=== PATIENT | female | born 1940 | race Caucasian/White ===

== ENCOUNTER → 2016-11-16 | Outpatient (CLI) | payer MEDICARE ==
[~2016-11-16] MED LIST: "\\\"PREP SPRAY\\\"-TIN4 OZ"; ALDACTONE25 MG PO; ALIGN4 MG PO; ARTIFICIAL TEAR30 ML OPHTH; ASPIRIN LO-DOSE81 MG PO; CALCIUM600 MG PO; ELIQUIS5 MG PO; ESTROPIPATE0.75 MG PO; EXCEDRIN TENSI1 EACH PO; GLUCOPHAGE500 MG PO; HYDRODIURIL12.5 MG PO; IMODIUM2 MG PO; JANUVIA 100 MG100 MG PO; KLOR-CON M2020 MEQ PO; LASIX20 MG PO; LEVAQUIN500 MG PO; LEVOTHROID (S125 MCG PO; LIPITOR40 MG PO; MAGNESIUM400 M1 PO; NORCO 5-325 MG1 TAB PO; NORCO 5-325 TA1 EACH PO; OCUVITE LUTEIN1 EAC1 PO; PLAVIX75 MG PO; PREVAGEN PO; PRINIVIL (ZESTR20 MG PO; PROBIOTIC1 EAC6 PO; SYSTANE BALANCE10 ML OPHTH; SYSTANE GEL10 GM OPHTH; TEARS AGAIN EYE5 GM OPHTH; THERAGRAN-M1 TAB PO; TOPROL XL25 MG PO; TYLENOL325 MG PO; VITAMIN B122500 MCG PO; VITAMIN C500 M1 PO
== END | disposition disaster alternative care site (69) ==
LOC: LNHI 17:21
DX: I48.1 Persistent atrial fibrillation (principal); I50.42 Chronic combined systolic (congestive) and diastolic (congestive) heart failure; I25.10 Atherosclerotic heart disease of native coronary artery without angina pectoris

== ENCOUNTER → 2016-12-21 | Day surgery (SDC) | payer MEDICARE ==
[~2016-12-21] VITALS: Ht 170.2 cm; Wt 86.9 kg
== END | disposition disaster alternative care site (69) ==
LOC: GPOC 12-19 14:00 → GEND 07:25 → GPOC 14:00
PROC: 0D748ZZ Dilation of Esophagogastric Junction, Via Natural or Artificial Opening Endoscopic (ICD-10-PCS; principal; 2016-12-21)
PROC: 0DB18ZX Excision of Upper Esophagus, Via Natural or Artificial Opening Endoscopic, Diagnostic (ICD-10-PCS; 2016-12-21)
PROC: 0DB38ZX Excision of Lower Esophagus, Via Natural or Artificial Opening Endoscopic, Diagnostic (ICD-10-PCS; 2016-12-21)
DX: R13.10 Dysphagia, unspecified (principal); I10 Essential (primary) hypertension; E11.9 Type 2 diabetes mellitus without complications; I25.10 Atherosclerotic heart disease of native coronary artery without angina pectoris; I87.2 Venous insufficiency (chronic) (peripheral); M15.9 Polyosteoarthritis, unspecified; E78.5 Hyperlipidemia, unspecified; E03.9 Hypothyroidism, unspecified; I27.2 Other secondary pulmonary hypertension; Z88.8 Allergy status to other drugs, medicaments and biological substances; Z79.899 Other long term (current) drug therapy; Z87.19 Personal history of other diseases of the digestive system; Z90.49 Acquired absence of other specified parts of digestive tract; Z98.49 Cataract extraction status, unspecified eye; Z90.710 Acquired absence of both cervix and uterus; Z96.643 Presence of artificial hip joint, bilateral; Z98.890 Other specified postprocedural states
CPT/HCPCS: C1726; J2001; J7030

== ENCOUNTER 2017-05-15 17:40 | Inpatient (IN) | payer MEDICARE ==
[~2017-05-15] VITALS: Ht 172.7 cm; Wt 79.8 kg
--- NOTE | ~2017-05-15 | ECHO ---
Transthoracic Echocardiography Report (TTE) Demographics Patient Name NICHO WALTON Date of Study 05/16/2017 Patient Number [id number] Visit Number [id number] Date of 1940 Room Number G3310 Gender Female Number Age 76 year(s) Referring Hranac Derik Turk Training And Documentation Specialist Salina Sarmiento [facility], Physician RVT Dinorah Carey MD Physician Interpreting Tarah Maldonado Outsole Rounder Physician Burke VIDAL Supervising Ordering Dinorah Carey MD, MD/MLP Physician Nurse Stress Financial Representative Conclusions Contractility Score Summary Summary The estimated left ventricular ejection fraction is 40-45%. Mild to moderate concentric left ventricular hypertrophy. Diastolic assessment reveals Grade III restrictive diastolic dysfunction. The left atrium is moderately dilated by LA volume index measurement. The interatrial septum appears aneurysmal. The interatrial septum bulges to the right, indicating elevated left atrial pressure. Mild to moderate mitral regurgitation by color Doppler 2 jets. Mild mitral annular calcification. Mild prolapse of both mitral valve leaflets. There is moderate pulmonary hypertension. The pulmonary pressure (RVSP) is 48 mmHg. Moderate tricuspid regurgitation by color Doppler. The aortic root appears dilated. The maximum diameter measures 3.43 cm. IVC is moderately dilated. Blunted response to sniffing. Abdominal aorta appears atherosclerotic. Procedure Type of Study TTE procedure:2D Echocardiogram. Procedure Date Date: 05/16/2017 Start: 06:44 AM Study Location: Inpatient Portable Technical Quality: Adequate visualization Indications:Preop cardiac evaluation and CHF. Appropriate Use Criteria: 9 Patient Status: Routine Rhythm: Within normal limits HR: 65 bpm BP: 135/76 mmHg Allergies - Other:(midazolam, benzodiazepines). M-Mode/2D Measurements LV Diastolic Dimension: 5 cm LV Systolic Dimension: 3.85 cm LV Septum Diastolic: 1.25 cm LV Septum Systolic: 3.87 cm LV PW Diastolic: 1.15 cm AO Root Dimension: 2.2 cm Cardiac Output: 5.16 l/min AV Cusp Separation: 1.8 cm RV Diastolic Dimension: 1.98 cm LA volume: 106 ml LVOT: 2.2 cm RV Base: 3.82 cm LVOT VTI: 20.9 cm RV Mid: 3 cm LV Stroke volume: 79.41 ml Doppler Measurements AV Peak Velocity: 1.2 m/s MV Peak E-Wave: 0.97 m/s AV Peak Gradient: 5.76 mmHg MV Peak A-Wave: 0.47 m/s AV Mean Gradient: 2 mmHg MV E/A Ratio: 2.07 LVOT Peak Velocity: 0.71 m/s MV P1/2t: 51 msec TR Gradient:33.64 mmHg PV Peak Velocity: 0.71 m/s Estimated RAP:15 mmHg PV Peak Gradient: 2.02 mmHg Estimated RVSP: 49 mmHg Estimated PASP: 48.64 mmHg E' Septal Velocity: 0.08 m/s A' Septal Velocity: 0.03 m/s E' Lateral Velocity: 0.12 m/s A' Lateral Velocity: 0.06 m/s MV E/E' Ratio: 12.3 Findings Left Ventricle The estimated left ventricular ejection fraction is 40-45%. Mild to moderate concentric left ventricular hypertrophy. Diastolic assessment reveals Grade III restrictive diastolic dysfunction. Right Ventricle Normal right ventricle structure and function. Left Atrium The left atrium is moderately dilated by LA volume index measurement. The interatrial septum appears aneurysmal. The interatrial septum bulges to the right, indicating elevated left atrial pressure. Right Atrium The right atrium is severely dilated. Mitral Valve Mild to moderate mitral regurgitation by color Doppler 2 jets. Mild mitral annular calcification. Mild prolapse of both mitral valve leaflets. Aortic Valve The aortic valve is mildly sclerotic. No significant aortic stenosis or insufficiency. Tricuspid Valve There is moderate pulmonary hypertension. The pulmonary pressure (RVSP) is 48 mmHg. Moderate tricuspid regurgitation by color Doppler. Pulmonic Valve The pulmonic valve is not well visualized. Pericardial Effusion No evidence of pericardial effusion. Miscellaneous The aortic root appears dilated. The maximum diameter measures 3.43 cm. IVC is moderately dilated. Blunted response to sniffing. Abdominal aorta appears atherosclerotic. Pleural Effusion No evidence of pleural effusion. Signature dtt: Isai Rascon dtd: 05/16/17 0644 Physician Self Edit
--- NOTE | ~2017-05-15 | CON ---
PATIENT'S NAME: NICHO WALTON [facility] AGE: 76 Y [address] ROOM: [address] [address] LOCATION: [facility] ADMIT DATE: 05/15/2017 Consultation DISCHARGE DATE: FAMILY PHYSICIAN: Derik Wall MD ATTENDING PHYSICIAN: ZECHARIAH WILSON REFERRING PHYSICIAN: Isai Rascon MD CHIEF COMPLAINT: Right foot redness and swelling. REASON FOR CONSULTATION: Medical management and preop medical evaluation. HISTORY OF PRESENT ILLNESS: This is a 76-year-old female who says that roughly about 3 days ago she noticed that her right foot has become red and itchy and also swollen. As the day goes by has become hot to touch, but she denies any tenderness due to her peripheral neuropathy from long-standing diabetes. Because of this problem, she came here today to see her primary care physician who in return deferred her to see a vascular surgeon due to her severe varicose vein in bilateral lower extremity and who in return deferred to orthopedic surgeon for the concern of the right foot cellulitis and possible bony involvement. The patient denies any pain. She only says that she has redness and swelling and she feels hot in that leg, but she denies any pain. At baseline, the patient lives by herself and she performs all the daily activities by herself, but she does get shortness of breath after walking one block. Her METS score is around 4, but she denies any chest pain at rest or exertion and she also denies any dyspnea at rest. She also denies any fever, chills, or any blood in the stool or hematuria or hemoptysis or hematochezia or hematemesis or melena. REVIEW OF SYSTEMS: As mentioned in history of present illness. All other systems were reviewed and were negative except those mentioned in history of present illness. PAST MEDICAL HISTORY: 1. Coronary artery disease, status post stent x1 in the past, specifically was performed on October 2015. 2. Hypertension. 3. Atrial fibrillation, on Eliquis. 4. Diastolic congestive heart failure. 5. Diabetes type 2. 6. History of stroke in the past, ischemic type without any neurological sequela. PATIENT'S NAME: NICHO WALTON [facility] AGE: 76 Y [address] ROOM: [place] [address] LOCATION: [facility] ADMIT DATE: 05/15/2017 Consultation DISCHARGE DATE: FAMILY PHYSICIAN: Derik Wall MD ATTENDING PHYSICIAN: ZECHARIAH IWLSON ALLERGIES: VERSED WHICH CAUSES HER TO BECOME AGGRESSIVE. HOME MEDICATIONS: Currently is being reconciled. SOCIAL HISTORY: She denies any cigarette, alcohol, or any illegal drug use. PAST SURGICAL HISTORY: 1. Cardiac stent x1 in October 2015. 2. Bilateral knee surgery. 3. Bilateral feet surgery. 4. Carpal tunnel surgery. 5. Thyroidectomy. 6. Cholecystectomy. 7. Hysterectomy. 8. Esophageal dilatation in the past. 9. Lower back surgery. FAMILY HISTORY: 1. Her father had type 2 diabetes and also from myocardial infarction at age 70. 2. Mother had stroke and from complication from the stroke at age 70. PHYSICAL EXAMINATION: VITAL SIGNS: At the time of evaluation, temperature 97.8, heart rate 67, respirations 14, blood pressure 135/77, saturation 95% on room air. GENERAL APPEARANCE: Alert and oriented x3. Currently, in no acute distress. HEENT: Pupils equally round and reactive to light. Extraocular muscles intact. Anicteric sclerae. Nasal turbinates are normal bilaterally. Moist oral mucosa. NECK: No obvious JVD. CARDIOVASCULAR: Irregularly irregular rate and rhythm. No murmur, no rubs, no gallops. RESPIRATORY: Clear to auscultation. No rales. No rhonchi. No wheezing. No crackles. ABDOMEN: Soft, nontender, nondistended, bowel sounds present. No mass. EXTREMITIES: Edema in bilateral lower extremity. Has obvious varicose veins in bilateral lower extremities. The right foot has erythema and warm to touch, but no tenderness to palpation in the right foot, especially in the toes of the right foot. Dorsalis pedis pulse and posterior tibialis pulse +2, bilaterally present. There is a superficial ulcer that does not look infected on the plantar surface of the right foot. No purulent drainage. PATIENT'S NAME: NICHO WALTON [facility] AGE: 76 Y [address] ROOM: [place] [address] LOCATION: [facility] ADMIT DATE: 05/15/2017 Consultation DISCHARGE DATE: FAMILY PHYSICIAN: Derik Wall MD ATTENDING PHYSICIAN: ZECHARIAH WILSON NEURO: Sensation decreased in the right foot. Otherwise, unremarkable. SKIN: Erythema and warm to touch on the right foot. LABORATORY DATA: Troponin less than 0.04. CPK 70. ProBNP 5466. White blood cell 3.0, hemoglobin 11.4, hematocrit 33.9, platelets 114. Glucose 100, BUN 24, creatinine 1.2, sodium 142, potassium 3.9, chloride 109, CO2 of 27, calcium 9.1. Total protein 6.8, albumin 3.2, AST 32, ALT 28, alkaline phosphatase 101, total bilirubin 1.3, direct bilirubin 0.4. Magnesium 1.6. Anion gap 9.9. Globulin 3.6. Indirect bilirubin 0.9. INR 1.2, PTT 32. GFR 44. CK-MB 2.7. IMAGING STUDIES: 1. EKG, currently is pending. 2. Chest x-ray, currently is pending. 3. MRI of the right foot on admission showed findings compatible with cellulitis, but no evidence for abscess or osteomyelitis. ASSESSMENT AND PLAN: 1. Regarding her right lower extremity cellulitis. Defer to Orthopedic Surgery for irrigation and drainage and also gastrocnemius recession per Orthopedic Surgery tomorrow. 2. Regarding her preoperative medical evaluation for noncardiac surgery. Orthopedic surgery is considered as intermediate risk surgery. From the guideline, currently the patient does not have any active contraindication for surgery; however, awaiting for the chest x-ray and also for the EKG to be performed and also she has evidence of right-sided heart failure from pulmonary hypertension, from elevation of proBNP. Her lungs are clear, but her proBNP is very high and she has a history of severe pulmonary hypertension. Therefore, the plan will be to get an echo in the morning, and I will give her low-dose Lasix tonight and check a renal panel again in the morning. She is on room air, saturating more than 94%. She does have edema in the legs, but it is chronic and she also has some edema due to her varicose veins. Further plan will depend on Cardiology evaluation and pending her clinical course. Unless her EKG and chest x-ray show something otherwise, she will need more testing and more medical evaluation before going for surgery. Therefore, her plan will depend on clinical course and per Cardiology evaluation in the morning. 3. Regarding her history of coronary artery disease, status post stent. We will defer to Cardiology evaluation. Currently, no active issue except some exertional dyspnea which I am treating her with IV Lasix right now for her right-sided heart failure from pulmonary hypertension. 4. Regarding her hypertension. Continue home blood pressure medication with holding parameter. PATIENT'S NAME: NICHO WALTON [facility] AGE: 76 Y [address] ROOM: [place] [address] LOCATION: [facility] ADMIT DATE: 05/15/2017 Consultation DISCHARGE DATE: FAMILY PHYSICIAN: Derik Wall MD ATTENDING PHYSICIAN: ZECHARIAH WILSON 5. Regarding her history of atrial fibrillation, on Eliquis. Hold Eliquis. It will be more than 24 hours from her last dose before the surgery, so she will be okay to go for surgery without bleeding risk. 6. Regarding history of diastolic congestive heart failure. We will get an echo in the morning and give her low-dose IV Lasix tonight, and depending on her renal panel tomorrow and echo and per Cardiology evaluation, would decide on further action. 7. Regarding her diabetes type 2. Check A1c and also will be giving her subcu regular insulin every 6 hours while n.p.o. and subcu aspart a.c. and h.s. low dose while she is eating. We will titrate as necessary. I will hold metformin in the setting of acute kidney injury. 8. Regarding her acute kidney injury. This could be cardiorenal from the severe pulmonary hypertension and the right-sided heart failure. Will give low-dose IV Lasix and see how she would do tomorrow morning. 9. Regarding her history of stroke. No active issue. 10. Regarding her hypothyroidism. Check TSH. Continue home dose and titrate the dose if necessary depending on the TSH level. 11. Deep venous thrombosis prophylaxis. She has a foot pump on the left foot. 12. Regarding her varicose vein. Defer to Vascular Surgery. Time spent in care on the day of admission 50 minutes where 15 minutes was spent on chart review and remainder of the time was spent in interview and physical examination and also on counseling. The counseling includes going over the plan of care with the patient and also addressing all the question and concerns that the patient had and also I went over the plan of care in detail with the patient and the patient's family member at the bedside. I also went over the plan of care with the nurse and answered all the questions to their satisfaction. Further plan will depend on clinical course. MD YANCI BLACK/keiry /[id number] d: 05/16/17 0545 t: 05/29/175, CONSULTATION REPORT
--- NOTE | ~2017-05-15 | OR ---
PATIENT'S NAME: NICHO MCCLELLAND [facility] AGE: 76 Y [address] ROOM: [place] [address] LOCATION: [facility] ADMIT DATE: 05/15/2017 OR/Procedure Report DISCHARGE DATE: FAMILY PHYSICIAN: Derik Wall MD ATTENDING PHYSICIAN: ZECHARIAH WILSON SURGEON: Zechariah Wilson MD ACID LOADER: Isak nichols PA-C. DATE OF PROCEDURE: 05/16/2017 PREOPERATIVE DIAGNOSES: 1. Right gastrocnemius equinus/shortened Achilles tendon. 2. Stage III diabetic pressure ulcer in the first metatarsal head. PROCEDURES: 1. Right gastrocnemius recession procedure. 2. Irrigation and debridement of right stage III diabetic pressure ulcer of plantar surface of foot. Debridement included skin, subcutaneous tissue, muscle, and fascia. Dimensions of wound were 6 cm in length x 6 cm in width x 0.5 cm in depth. ANESTHESIA: General endotracheal anesthesia. FLUIDS: See anesthesia report. SPECIMEN: Right foot wound cultures. COMPLICATIONS: None. DISPOSITION: Stable in PACU. COUNTS: All counts were correct. INDICATIONS: Ms. Mcclelland is a pleasant 76-year-old female, who underwent the noted procedures above. The risks, benefits, and alternatives of pursuing the surgical intervention were discussed with the patient in detail. She elected to proceed with surgery. Anesthesia was consulted for their perioperative evaluation of the patient. I marked the patient's right lower extremity indicating correct surgical site. DESCRIPTION OF PROCEDURE: The patient was brought from the holding area to the operating room. A time-out was performed. General endotracheal anesthesia was administered. The right lower extremity was then prepped and draped in a sterile fashion. An Esmarch was used to exsanguinate the limb. The tourniquet was inflated to PATIENT'S NAME: NICHO MCCLELLAND [facility] AGE: 76 Y [address] ROOM: [place] [address] LOCATION: [facility] ADMIT DATE: 05/15/2017 OR/Procedure Report DISCHARGE DATE: FAMILY PHYSICIAN: Derik Wall MD ATTENDING PHYSICIAN: ZECHARIAH WILSON 250 mmHg. Antibiotics were held in preparation for cultures of the right foot. I turned my attention to the medial aspect of the leg. Using a 15-blade knife, I performed a gastrocnemius recession procedure. The wound was then copiously irrigated and closed in layers. I then turned my attention to the right foot where there was a stage III diabetic pressure sore. Using a 10-blade knife and curettes, I debrided the diabetic pressure ulcer to a stable base. The debridement included skin, subcutaneous tissue, muscle, and fascia. The wound was then copiously irrigated and dressed sterilely. A soft dressing was placed. The patient was then transferred from the operating table onto the stretcher and extubated. She was brought to the recovery room in stable condition. There were no intraoperative complications noted. Of note, my PA, Isak Balgey PA-C, played an integral role in the intraoperative care of this patient. This included preoperative positioning, intraoperative expert retraction, and closing and dressing functions. IMPRESSION: The patient is status post noted procedure above. PLAN: The patient will be nonweightbearing on the right lower extremity. Postoperative pain control will be in the form of Percocet and IV morphine as needed for pain. Chemical DVT prophylaxis will be resumed tomorrow. We will change the dressing on postoperative day 2. We will follow up the results of the intraoperative wound cultures that were obtained. Postoperative antibiotics will be continued per routine until the cultures come back. The hospitalist will continue to manage the patient's concomitant medical comorbidities. Physical Therapy and Occupational Therapy will be consulted for early ambulation and prevention of deconditioning. MD ALYSON ZELAYA/keiry /[id number] d: 05/17/17 0104 t: 05/17/17 0733, OPERATIVE SUMMARY
--- NOTE | ~2017-05-15 | CON ---
PATIENT'S NAME: NICHO MCCLELLAND [facility] AGE: 76 Y [address] ROOM: [id number] [place] [id number] LOCATION: [facility] ADMIT DATE: 05/15/2017 Consultation DISCHARGE DATE: FAMILY PHYSICIAN: Derik Wall MD ATTENDING PHYSICIAN: ZECHARIAH WILSON REFERRING PHYSICIAN: Osman Rosen MD HISTORY OF PRESENT ILLNESS: This is a 76-year-old woman with chronic combined heart failure, previous stent to the left anterior descending artery, and chronic atrial fibrillation whom I am asked to see as a preoperative evaluation to assess her cardiac risk. She was admitted on the because she says that about 3 days earlier, she noticed that her right foot had become swollen and red. She did not have any pain, but she thinks that is because of her peripheral neuropathy from her diabetes. She noticed that the foot was warm to touch, so she went to see Dr. Fountain who diagnosed her with cellulitis. Dr. Ny was also consulted because of her chronic venous insufficiency and then she was admitted under the Hospitalist Service and Dr. Wilson plans to do some debridement and also work on her gastrocnemius. PAST MEDICAL HISTORY: 1. Coronary artery disease. The patient had a drug-eluting stent to the mid left anterior descending artery in October 2015, and she did well afterwards. 2. She has chronic combined heart failure with ejection fraction of 40% to 45%, as well as class 3 diastolic dysfunction, biatrial enlargement, and mild to moderate mitral and tricuspid regurgitation with moderate pulmonary hypertension. 3. She has chronic venous insufficiency with previous 3 endovascular ablations of her saphenous veins but with recurrence and history of deep vein thrombosis and at least one episode of pulmonary emboli. There is also family history of thromboembolic disease and factor V Leiden. 4. The patient has considered going off for her anticoagulation. In the past, she was on warfarin with not very good control and now she is on Eliquis, who she thinks is responsible for her venous insufficiency and actually she had recent transesophageal echocardiogram at [facility] consideration for possible Watchman device. 5. She has chronic permanent atrial fibrillation, rate controlled. 6. She has history of cerebrovascular accident without sequelae. 7. Chronic kidney disease stage 3. 8. Diabetes type 2. 9. Systemic hypertension. 10. Chronic estrogen use. OUTPATIENT MEDICATIONS: On April 05, PATIENT'S NAME: NICHO MCCLELLAND [facility] AGE: 76 Y [address] ROOM: [address] [place], [place] [address] LOCATION: [facility] ADMIT DATE: 05/15/2017 Consultation DISCHARGE DATE: FAMILY PHYSICIAN: Derik Wall MD ATTENDING PHYSICIAN: ZECHARIAH WILSON 1. Align 4 mg daily. 2. Calcium 600 mg daily. 3. Eliquis 5 mg twice a day. 4. Excedrin 2 tablets twice a day as needed. 5. Imodium 2 mg daily as needed. 6. Januvia 100 mg daily. 7. Lasix 20 mg twice a day. 8. Lipitor 40 mg daily. 9. Lisinopril 20 mg daily. 10. Magnesium oxide 400 mg twice a day. 11. Metformin 500 mg daily. 12. Metoprolol succinate 25 mg half a tablet daily. 13. Multivitamin with minerals once a day. 14. Ogen 3 mg daily. 15. [place] 5/325 every 4 to 6 hours as needed. 16. Potassium chloride 20 mEq 2 tablets daily. 17. Spironolactone 25 mg half a tablet twice a day. 18. Synthroid 125 mcg daily. 19. Vitamin B12 1000 mcg daily. 20. Vitamin C daily. PAST SURGICAL HISTORY: Bilateral total knee arthroplasty, bilateral total hip, abdominal hysterectomy, open cholecystectomy and appendectomy, thyroidectomy, right foot surgery x2, bilateral breast augmentation and mastoplasty, bilateral cataract with intra-ocular lens implant, bilateral carpal tunnel, septoplasty, lumbar laminectomy, EGD with dilation, colonoscopy. REVIEW OF SYSTEM: In addition to what noted in the history of present illness, she has full dentures. She has macular degeneration. She has some difficulty swallowing. She has dyspnea on exertion about one block. She has history of diverticulosis, gastroesophageal reflux, hemorrhoids, hypothyroidism with goiter. Remaining systems are negative. FAMILY HISTORY: Her mother from a stroke at 70. She had history of deep vein thrombosis and pulmonary emboli in her mother. Her father from myocardial infarction at 70, he was diabetic. One sister from anorexia in her 60s. Another sister has some unspecified heart problems. PHYSICAL EXAMINATION: VITAL SIGNS: She is a pleasant 76-year-old woman, alert and oriented, examined in her room. VITAL SIGNS: Height 5 feet 8 inches, weighs 79.8 kg, blood pressure was PATIENT'S NAME: NICHO MCCLELLAND [facility] AGE: 76 Y [address] ROOM: [id number] [place], [place] [address] LOCATION: [facility] ADMIT DATE: 05/15/2017 Consultation DISCHARGE DATE: FAMILY PHYSICIAN: Derik Wall MD ATTENDING PHYSICIAN: ZECHARIAH WILSON 165/76, heart rate of 62, she is afebrile. SKIN: Warm and dry, hyperpigmented below the knees. HEAD: Normocephalic, atraumatic. No xanthelasmas. No jaundice. NECK: Supple. No jugular venous distention. No carotid bruits. CHEST: Entirely clear. HEART: Irregular first and second heart sound, 1/6 systolic murmur at the apex. ABDOMEN: Soft and nontender. LOWER EXTREMITIES: No significant edema. There is a dressing in the right foot. DIAGNOSTIC STUDIES: Troponin is negative. Procalcitonin less than 0.05, lactate 1.0, potassium 3.3, creatinine 1.1, GFR 49, magnesium 1.7. Blood cultures so far negative. TSH 1.1. Hemoglobin A1c 6.8. Lipid panel unremarkable. ProBNP 5466. Her echocardiogram today shows stable ejection fraction 40% to 45% with biatrial enlargement and restrictive filling pattern and moderate pulmonary hypertension. Electrocardiogram atrial fibrillation, poor R-wave progression on the precordial leads. IMPRESSION: From a cardiac standpoint, the patient does not need any further evaluation. She is at moderate risk for cardiac complications because of her pre-existing problems of coronary artery disease, combined heart failure, and chronic atrial fibrillation. Thank you for allowing me to participate in the care of Ms. Mcclelland. OSMAN ROSEN MD PE/modl /[id number] d: 05/16/172004 t: 08/31/17 0953, CONSULTATION REPORT
[~2017-05-15 17:40] MED LIST changes: -ALIGN4 MG PO; -CALCIUM600 MG PO; -IMODIUM2 MG PO; -LEVAQUIN500 MG PO; -NORCO 5-325 TA1 EACH PO; -OCUVITE LUTEIN1 EAC1 PO; -PREVAGEN PO; -PROBIOTIC1 EAC6 PO; -SYSTANE BALANCE10 ML OPHTH; -SYSTANE GEL10 GM OPHTH; -TYLENOL325 MG PO; -VITAMIN B122500 MCG PO; -VITAMIN C500 M1 PO
[2017-05-15 20:06] LABS: BASOPHIL % 0.7 %; HEMATOCRIT 33.9 % (33.0-46.0); HEMOGLOBIN 11.4 g/dL (10.0-15.0); IMMATURE GRANULOCYTE % 0.3 %; LYMPHOCYTE # 0.9 K/uL (0.8-4.0); LYMPHOCYTE % 30.6 %; MCH 29.7 pg (27.0-34.0); MCHC 33.6 gm/dL (32.0-36.5); MCV 88.3 fl (83.0-98.0); MONOCYTE # 0.4 K/uL (0.0-1.0); MONOCYTE % 13.5 %; MPV 9.9 fl (9.4-12.4); NEUTROPHIL # (ANC) 1.6 K/uL (1.8-7.8); NEUTROPHIL % 53.9 %; NRBC % 0 /100WBC (0-0.00); PLATELET COUNT 114 K/uL (150-450); RBC 3.84 M/uL (3.50-5.50); RDW-CV 13.5 % (11.9-14.6)
[2017-05-15 20:15] LABS: PROTIME 12.6 SECONDS (9.8-11.4); PTT 32 SECONDS (25-32)
[2017-05-15 20:21] LABS: ANION GAP 9.9 (10.0-19.0); CALCIUM 9.1 mg/dL (8.5-10.5); CREATININE 1.2 mg/dL (0.5-1.1); POTASSIUM 3.9 mMol/L (3.7-5.1)
[2017-05-15] MEDS ORDERED: VITAMIN C500 M1 PO (20:43)
[2017-05-15] MEDS ORDERED: ALIGN4 MG PO (20:43)
[2017-05-15] MEDS ORDERED: VITAMIN B122500 MCG PO (20:45)
[2017-05-15] MEDS ORDERED: CALCIUM600 MG PO (20:45)
[2017-05-15] MEDS ORDERED: IMODIUM2 MG PO (20:46)
[2017-05-15] MEDS ORDERED: OCUVITE LUTEIN1 EAC1 PO (20:47)
[2017-05-15] MEDS ORDERED: SYSTANE BALANCE10 ML OPHTH (20:48)
[2017-05-15] MEDS ORDERED: SYSTANE GEL10 GM OPHTH (20:48)
[2017-05-15] MEDS ORDERED: PREVAGEN PO (20:51)
[2017-05-15 21:09] LABS: ALBUMIN 3.2 gm/dL (3.5-5.0); ALK PHOS 101 IU/L (33-138); ALT 28 IU/L (12-78); AST 22 IU/L (10-40); CPK 70 IU/L (21-215); MAGNESIUM 1.6 mg/dL (1.8-2.6); TOTAL BILIRUBIN 1.3 mg/dL (0.0-1.5); TOTAL PROTEIN 6.8 g/dL (6.0-8.4)
--- NOTE | 2017-05-15 21:11 | NUR ---
PATIENT IS 76 YO FEMALE ADMITTED THIS EVENING FOR CELLULITIS OF RIGHT FOOT. SEEMS UNCLEAR HOW LONG SHE HAS BEEN HAVING TROUBLE WITH IT. PATIENT LIVES IN [place] BY HERSELF. DAUGHTER IS VERY CLOSE TO PATIENT. 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. SEEN IN CLINIC TODAY, REFERRED TO DR. ARORA AND IS ADMITTED. IV IS STARTED IN RIGHT FOREARM WITH 20 GA INTRACATH ON 3RD ATTEMPT. FIRST 2 ATTEMPTS SUCCESSFUL HOWEVER UNABLE TO ADVANCE THE CATHETER. BLOOD WAS DRAWN FOR LAB WITH 3RD ATTEMPT. PT VINCENT WELL. PATIENT IS VERY PLEASANT AND CHEERFUL. EDUCATION IS GIVEN DOCUMENTED. PATIENT DENIES QUESTIONS. PNEUMATICS ON LEFT FOOT ONLY. CALL LIGHT IS WITHIN REACH. PATIENT DID REQUEST ADVANCED DIRECTIVE BOOKLET. REPORT IS GIVEN TO BERNABE LEE.
--- NOTE | 2017-05-16 04:55 | NUR ---
Significant Event: Alert and oriented X3. Hypertensive with BP as high as 168/81. Pt is on telemetry for a history of afib. Heart rate ranging 45-50's. We are to call MD if HR <40 bpm. Gave 40 meq of PO K+. Mg 1g given IV. IV present to R) wrist. IV to be SL'd. Pro BNP elevated. Will have an echo done this am. Dr. Gutierrez will need to see patient this am for cardiac clearance for OR. Surgery is planned for 1245. Pt has been NPO since midnight. Will start checklist. Permit on the chart, has not been signed yet, no R&B's. Redness present to R) foot, warm to touch. Has diabetic neuropathy, but the R) foot is more numb than the right. Has a callous and is scabbed to bottom of R) foot and a small ecchymotic/blistered area. Pt is diabetic, accuchecks q 6 hr while NPO and ACHS when eating. Follow up:
[2017-05-16 07:37] LABS: ANION GAP 9.3 (10.0-19.0); CALCIUM 9.4 mg/dL (8.5-10.5); CREATININE 1.1 mg/dL (0.5-1.1); MAGNESIUM 1.7 mg/dL (1.8-2.6); POTASSIUM 3.3 mMol/L (3.7-5.1)
--- NOTE | 2017-05-16 11:47 | NUR ---
Significant Event: Pt Aox3. VSS, CSM WNL. Right foot hot and red. Pt states it is much better than yesterday. NPO since midnight for OR today. Down to OR at 1130. Pt is concerned about not receiving her Lisinopril. It was not ordered upon admission. IV Mag and Potassium given. Telemetry on with no calls. ECHO this am. Denied need for pain medication prior to OR. Daughters at bedside. Follow up:
[2017-05-16 14:19] LABS: ALBUMIN 3.3 gm/dL (3.5-5.0); ANION GAP 9.3 (10.0-19.0); CALCIUM 9.3 mg/dL (8.5-10.5); POTASSIUM 4.3 mMol/L (3.7-5.1); TOTAL BILIRUBIN 1.5 mg/dL (0.0-1.5); TOTAL PROTEIN 7.4 g/dL (6.0-8.4)
--- NOTE | 2017-05-16 18:32 | NUR ---
Pt here from PACU at 1815. She had a light general anesthetic, aductor canal block, and popliteal block. No sensation lower Rt leg and foot. Has margarito dressing below knee down to toes. Toes exposed. They are warm, elisa well. No sensation. Bloody drainage between toes on gauze. Pt up to [facility] [place] and voided 300 ml to your credit. Pt is no weight bearing Rt leg for 12 hrs. Has post op wooden shoe in room. Pt on room air. No nausea. Pt denies pain.
--- NOTE | 2017-05-16 18:34 | NUR ---
Pt had 60 ml pink drng out of back drain. Pt up and about camacho on own and does well. Percocet 2 tabe PO at 1600.
[2017-05-17 04:16] LABS: BASOPHIL % 0.3 %; EOSINOPHIL % 0.8 %; HEMATOCRIT 37.2 % (33.0-46.0); HEMOGLOBIN 12.6 g/dL (10.0-15.0); IMMATURE GRANULOCYTE % 0.3 %; LYMPHOCYTE % 26.9 %; MCH 30.1 pg (27.0-34.0); MCHC 33.9 gm/dL (32.0-36.5); MCV 88.8 fl (83.0-98.0); MONOCYTE # 0.4 K/uL (0.0-1.0); MONOCYTE % 10.9 %; MPV 10.2 fl (9.4-12.4); NEUTROPHIL # (ANC) 2.2 K/uL (1.8-7.8); NEUTROPHIL % 60.8 %; NRBC % 0 /100WBC (0-0.00); PLATELET COUNT 120 K/uL (150-450); RBC 4.19 M/uL (3.50-5.50); RDW-CV 13.4 % (11.9-14.6); WBC 3.7 K/uL (4.0-11.0)
[2017-05-17 04:33] LABS: ALBUMIN 3.1 gm/dL (3.5-5.0); ANION GAP 8.1 (10.0-19.0); CALCIUM 9.3 mg/dL (8.5-10.5); CREATININE 0.9 mg/dL (0.5-1.1); PHOSPHORUS 2.4 mg/dL (2.5-4.9); POTASSIUM 4.1 mMol/L (3.7-5.1)
--- NOTE | 2017-05-17 05:07 | NUR ---
Significant Event: Alert/oriented x3. Anxious about her meds. Accuchecks AC, HS, 170 at HS - 0 U Novolog per mild sliding scale. Bradycardic - upper 40s to mid 50s, notify MD if <40, did not happen on this shift. Moderate bloody drainage, marked, reinforced with pad underneath. Voided well per bedside commode. Tele, no calls. Foot pump left foot. Right foot elevated on 2 pillows. Can get up with ortho shoe, was NWB for 1st 12 hrs postop. Saline lock right forearm, flushes. Follow up:
--- NOTE | 2017-05-17 05:11 | NUR ---
Morphine 2 mg IVP at 0458 for restlessness.
--- NOTE | 2017-05-17 10:42 | NUR ---
Significant Event: Pt AOx3. VSS, still hypertensive and slightly bradycardic. I have spoken with Wendy Marte about reordering her home BP meds. Diabetic with AC/HS accuchecks, no SS coverage needed. Takes PO well. Voids without difficulty. NWB R) LE, it was originally ordered for her to be heel weight bearing 12 hours after surgery; however, when she was working with PT her incision started drainage. I notified BRIANNE Prieto and thats when the order was changed to NWB R) LE. He also stated he wanted to change the dressing, in the meantime, I reinforced the dressing with ABD and margarito wrap. Foot pump to left foot. Remains on telemetry with no calls. Took 650mg Tylenol this am for headache, denies pain to foot. CSM not WNL, right great toe is numb but she has feeling in the other toes. Able to wiggle toes. Edema present, leg elevated. She did not have post operative antibiotics ordered so I had Luz Elena call Isak this am and he did order Ancef 1 gram q8h x 3. Initial dose given at 0800. Up with one person assist, walker and gait belt. Does well maintaining weight bearing status. Follow up:
--- NOTE | 2017-05-17 13:50 | NUR ---
Introduced self and care management services to patient and daughter at bedside. Daughter planning on helping patient on discharge, they have walker, crutches, cane. Will get stool riser and possibly wheelchair, I gave them information on DME places they can purchase or borrow equipment. Denies other concerns for me today about pt going home on discharge. Will continue to follow.
--- NOTE | 2017-05-17 16:56 | NUR ---
Took over cares at 1430. Pt up to shower and used scooter with PT. Dressing changed by Gayathri DECKER and due to drng, pt is No weight bearing Rt leg. Does well with that and 1 person when uses BSC. Pt has been up chair this afternoon. Legs elevated. Hema dressing dry and intact and bloody drng noted at gauze at toes. Pt toes swollen, warm, elisa well. Says Numbness Rt great toe that she had had a long time. Pt had tylenol earlier for headache and rates pain at 3 at ball of Rt foot. Eliquis held at this time due to drainage. Pt restarted on BP meds. On tele and no calls. IS use at 1500.
--- NOTE | 2017-05-18 03:46 | NUR ---
Significant Event: Alert/oriented x3. No pain meds given. 1 assist ambulation/transfers, has scooter in room. Needs to use ortho shoe when up. Foot pump left foot. Bloody drainage has increased slightly at the base of the right great toe from scant to small. Saline lock in right forearm. Voids well per BSC. Tele, no calls. Bradycardic, pulse ranged from low 50s to mid 60s. Right toes swollen, warm, carlos well. Right great toe has chronic numbness. IS at 1500. Accuchecks AC, HS - was 136 at HS - 0 U Novolog per mild sliding scale. Room air. Follow up:
--- NOTE | 2017-05-18 04:03 | NUR ---
Last BM charted 05/12.
[2017-05-18 05:52] LABS: HEMATOCRIT 37.4 % (33.0-46.0); HEMOGLOBIN 12.2 g/dL (10.0-15.0)
--- NOTE | 2017-05-18 18:02 | NUR ---
Pt alert, oriented. Has been up to bathroom several times with scooter and one asst. Up recliner a few times and now up again for supper. Has denied pain this shift and no analgesics given. Pt on tele. Pt dressing has old drng at toes on gauze that doesn't appear to have increased this shift. Pt is still NWB on Rt leg. Numbness Rt great toe. Toes warm, some edema and elisa well. Pt uses IS. Pt uses IS. Hopes to go home monday or monday. Continues on IV ATB. VS stable and BP much improved with last one at 134/62
--- NOTE | 2017-05-19 02:19 | NUR ---
Significant Event: Dressing has old drianage to toes. Big toe is numb, but other CSM WNL. On telemetry with no calls. Bradycardic. NWB to R) foot. 1 assist with scooter. Voids without difficulty. Denies pain. Follow up:
[2017-05-19 05:34] LABS: BASOPHIL % 0.3 %; EOSINOPHIL % 0.8 %; HEMATOCRIT 34.6 % (33.0-46.0); HEMOGLOBIN 11.6 g/dL (10.0-15.0); IMMATURE GRANULOCYTE % 0.3 %; LYMPHOCYTE # 1.2 K/uL (0.8-4.0); LYMPHOCYTE % 33.8 %; MCH 29.4 pg (27.0-34.0); MCHC 33.5 gm/dL (32.0-36.5); MCV 87.8 fl (83.0-98.0); MONOCYTE # 0.4 K/uL (0.0-1.0); MONOCYTE % 10.7 %; MPV 9.9 fl (9.4-12.4); NEUTROPHIL # (ANC) 1.9 K/uL (1.8-7.8); NEUTROPHIL % 54.1 %; NRBC % 0 /100WBC (0-0.00); PLATELET COUNT 115 K/uL (150-450); RBC 3.94 M/uL (3.50-5.50); RDW-CV 13.3 % (11.9-14.6); WBC 3.6 K/uL (4.0-11.0)
[2017-05-19 05:46] LABS: ANION GAP 8.6 (10.0-19.0); CREATININE 0.9 mg/dL (0.5-1.1); MAGNESIUM 1.8 mg/dL (1.8-2.6); POTASSIUM 3.6 mMol/L (3.7-5.1)
--- NOTE | 2017-05-19 12:11 | NUR ---
Student nurse provided patient cares from 0630 to 1230. Naye Ford RN, [facility] Instructor
[2017-05-19] MEDS ORDERED: TYLENOL325 MG PO (14:11)
[2017-05-19] MEDS ORDERED: PROBIOTIC1 EAC6 PO (14:17)
[2017-05-19] MEDS ORDERED: LEVAQUIN500 MG PO (14:18)
[2017-05-19] MEDS ORDERED: NORCO 5-325 TA1 EACH PO (14:19)
--- NOTE | 2017-05-19 19:28 | NUR ---
Pt discharged today at 1850 to go home with assistance of daughter. Daughter has scooter and wheelchair. Pt is alert, oriented. Denies pain all shift. Dressing changed earlier this morning by Gayathri DECKER. Pt has some numbness Rt great toe and otherwise is WNL. Edema of Rt toes. Scant dressing on gauze near toes that is visible. Pt ambulates with NWB on Rt using scooter. Goes to BR and up in camacho. Needs a little assist when getting off toilet or into chair. Pt does well with NWB. Pt understands home medications, followup, wound dressing to stay dry, when to call . Pt discharged per w/c to door to go with daughters car. Stable condition
[2017-05-30] MEDS ORDERED: PREVAGEN PO (00:39)
[2017-06-03] MEDS ORDERED: ASPIRIN (CHILDR81 MG PO (13:44)
[2017-06-03] MEDS ORDERED: FEOSOL325 MG PO (13:56)
== END 2017-05-19 18:50 | disposition disaster alternative care site (69) | DRG 579 ==
LOC: G3N 18:52
PROVIDERS: Family Medicine; Internal Medicine; Nurse Practitioner Family; Physician Assistant Medical; ADMIT Orthopaedic Surgery Adult Reconstructive Orthopaedic Surgery
PROC: 0L8N0ZZ Division of Right Lower Leg Tendon, Open Approach (ICD-10-PCS; principal; 2017-05-16)
PROC: 0JDQ3ZZ Extraction of Right Foot Subcutaneous Tissue and Fascia, Percutaneous Approach (ICD-10-PCS; principal; 2017-05-16)
PROC: 0K9V0ZZ Drainage of Right Foot Muscle, Open Approach (ICD-10-PCS; principal; 2017-05-16)
DX: L03.115 Cellulitis of right lower limb (principal); L89.893 Pressure ulcer of other site, stage 3; N17.9 Acute kidney failure, unspecified; I13.0 Hypertensive heart and chronic kidney disease with heart failure and stage 1 through stage 4 chronic kidney disease, or unspecified chronic kidney disease; E11.22 Type 2 diabetes mellitus with diabetic chronic kidney disease; I50.42 Chronic combined systolic (congestive) and diastolic (congestive) heart failure; E03.9 Hypothyroidism, unspecified; E11.621 Type 2 diabetes mellitus with foot ulcer; N18.3 Chronic kidney disease, stage 3 (moderate); I27.2 Other secondary pulmonary hypertension; I87.2 Venous insufficiency (chronic) (peripheral); I48.2 Chronic atrial fibrillation; Z79.01 Long term (current) use of anticoagulants; Z86.73 Personal history of transient ischemic attack (TIA), and cerebral infarction without residual deficits; Z86.711 Personal history of pulmonary embolism; I25.10 Atherosclerotic heart disease of native coronary artery without angina pectoris; I83.893 Varicose veins of bilateral lower extremities with other complications; E11.42 Type 2 diabetes mellitus with diabetic polyneuropathy; E78.5 Hyperlipidemia, unspecified; E87.6 Hypokalemia; Z96.653 Presence of artificial knee joint, bilateral; Z96.643 Presence of artificial hip joint, bilateral
CPT/HCPCS: G0378; G0379; J0690; J1940; J2270; J2405; J2765; J3010; J3475; J3480; J7030; J7050

== ENCOUNTER 2017-05-23 17:22 | Emergency (ER) | payer MEDICARE ==
--- NOTE | ~2017-05-23 | ER ---
PATIENT'S NAME: NICHO WALTON [facility] AGE: 76 Y [address] ROOM: [place] [address] LOCATION: [facility] ADMIT DATE: 05/23/2017 ER/Outpatient Report DISCHARGE DATE: 05/23/2017 FAMILY PHYSICIAN: Derik Wall MD ATTENDING PHYSICIAN: Jaqueline Cruz Time of Arrival: 1722 hours. Time of Evaluation: 1722 hours. IDENTIFICATION: A 76-year-old female. CHIEF COMPLAINT: Altered mental status. HISTORY OF PRESENT ILLNESS: The patient is a 76-year-old female, who had right gastrocnemius recession procedure and irrigation and debridement of the right stage III diabetic pressure ulcer, plantar surface of the foot, per Dr. Bazan on May 15. She has a wound culture positive for Serratia marcescens, Staphylococcus epidermidis and Streptococcus, currently treated with Levaquin. Today, she went for a followup appointment with Dr. Wall's office and saw Paula Raphael as well as Dr. Bazan. She was doing well, but then at approximately 4:30, she had trouble with her vision and her daughter said that she was unable to find the words for speech. No facial droop. No unilateral weakness. She does have a history of atrial fibrillation, on chronic anticoagulation and a history of previous TIA. PAST MEDICAL HISTORY: ALLERGIES: TO VERSED. CURRENT MEDICATIONS: 1. Lisinopril 20 mg daily. 2. Atorvastatin 40 mg at bedtime. 3. Spironolactone 12.5 mg daily. 4. Levothyroxine 125 mcg daily. 5. Metformin 500 mg daily. 6. KCl 20 mEq b.i.d. 7. Furosemide 20 mg at bedtime. 8. Metoprolol 12.5 mg at bedtime. 9. Acetaminophen with hydrocodone 5/325 one q.8 hours p.r.n. pain. 10. Magnesium oxide 400 mg b.i.d. 11. Apixaban 5 mg b.i.d. PATIENT'S NAME: NICHO WALTON [facility] AGE: 76 Y [address] ROOM: [place] [address] LOCATION: ED ADMIT DATE: 05/23/2017 ER/Outpatient Report DISCHARGE DATE: 05/23/2017 FAMILY PHYSICIAN: Derik Wall MD ATTENDING PHYSICIAN: Jaqueline Cruz 12. Januvia 100 mg daily. 13. Multivitamin daily. 14. Ascorbic acid 500 mg daily. 15. Align capsule 4 mg daily. 16. Calcium carbonate 600 mg daily. 17. Vitamin B12 2500 mcg daily. 18. Ocuvite Lutein 1 capsule daily. 19. Systane gel 1 drop daily. 20. Systane Balance eye drops 1 drop daily. 21. Acetaminophen 650 mg q.6 hours p.r.n. 22. Probiotic 1 tablet daily. 23. Levaquin 500 mg daily for 14 days. MEDICAL PROBLEMS: Hypertension; diabetes mellitus type 2; chronic kidney disease; history of CVA with minimal residual effect; chronic atrial fibrillation; coronary artery disease, status post drug-eluting stent in October of 2015; chronic combined heart failure with EF of 40% to 45%; chronic venous insufficiency; chronic low back pain with history of compression fracture; and history of DVTs. PRIOR SURGERIES: Cholecystectomy, bilateral total knee arthroplasty, bilateral total hip arthroplasty, hysterectomy, appendectomy, bilateral hemilaminectomy; cardiac catheterization; and recent right foot surgery. SOCIAL HISTORY: The patient lives here in [place]. Tobacco use, denies. Alcohol use, denies. Drug use, denies. REVIEW OF SYSTEMS: All systems reviewed and negative other than what is noted in the HPI. Most of the history was obtained from the daughters and old records as the patient was not able to give me much of the history. PHYSICAL EXAMINATION: VITAL SIGNS: Height 5 feet 8 inches and weight 80.6 kg. Blood pressure 138/95, pulse 78, respiratory rate is 18, temperature 98.2, and saturations 99% on room air. GENERAL: A 76-year-old female, in obvious distress. HEENT: Head: Normocephalic, atraumatic. Ears: TMs translucent, both ears. Eyes: Pupils equal and reactive to light and accommodation. Extraocular movements intact. Nose: Mucosa pink. No lesions. Mouth: No lesions. Pharynx benign. NECK: Supple. No lymphadenopathy. LUNGS: Clear to auscultation. PATIENT'S NAME: NICHO WALTON [facility] AGE: 76 Y [address] ROOM: [place] [address] LOCATION: [facility] ADMIT DATE: 05/23/2017 ER/Outpatient Report DISCHARGE DATE: 05/23/2017 FAMILY PHYSICIAN: Derik Wall MD ATTENDING PHYSICIAN: Jaqueline Cruz HEART: Irregularly irregular rhythm. ABDOMEN: Soft, nondistended, nontender. SKIN: [place], warm, and dry. The patient has an Hema wrap and a dressing on her right lower extremity. She does have some swelling. NEURO: The patient is alert. At this time, she is not oriented to person, place, or time. Cranial nerves 2 through 12 grossly intact. Motor strength: Upper extremities, 5/5. Lower extremities, unable to determine as she will not follow commands. Sensation, unable to determine as she will not follow commands. NIH stroke scale 5 to the best of my ability. She mostly just is not following commands and not able to find the words she wants to use to answer. EMERGENCY DEPARTMENT COURSE: IV was initiated. Labs were obtained. CT and stroke orders were placed. It is shift change and Dr. Simon will assume care. JAQUELINE CRUZ MD CAR/modl /[id number] d: 05/24/17657 t: 05/24/179, OUTPATIENT REPORT
--- NOTE | ~2017-05-23 | ER ---
PATIENT'S NAME: NICHO WALTON [facility] AGE: 76 Y [address] ROOM: [place] [address] LOCATION: [facility] ADMIT DATE: 05/23/2017 ER/Outpatient Report DISCHARGE DATE: 05/23/2017 FAMILY PHYSICIAN: Derik Wall MD ATTENDING PHYSICIAN: Jaqueline Gallagher HISTORY OF PRESENT ILLNESS: This patient is a 76-year-old female who was brought to the emergency room by Paramedics via ambulance following acute onset of altered mental status. She initially saw Dr. Gallagher here in the emergency department. See Dr. Gallagher's dictation in regard to the chief complaint, history of present illness, past medical history, and physical exam. Dr. Gallagher ordered a stroke workup and some other testing. Dr. Gallagher transferred the patient's care over to me at shift change and asked me to follow up with all the laboratory study results, EKG, chest x-ray, CT scan results, final diagnosis, and treatment plan. IMAGING: The patient's CT scan of the head showed no intracranial bleed, midline shift, mass effect, or skull fracture. CT scan was read by Radiology, see dictated transcribed report. Chest x-ray showed no acute infiltrate or changes. We will review x-ray with the radiologist. EKG showed atrial fibrillation, no acute ST elevation or ischemic changes. LABORATORY DATA: Accu-Chek was 149. Renal panel was normal except for an elevated glucose of 130. Troponin was less than 0.04. Urine showed 0 to 2 whites, 0 to 2 reds, 10 to 20 epithelial cells, few bacteria, 5 to 10 hyaline casts, negative nitrites on dipstick. Culture pending. Blood cultures x2 drawn, results pending. White count is 4500, 58 segs, 32 lymphs, 9 monos, 1 eo, hemoglobin is 11.7, hematocrit 35.8, platelet count is 139,000. PTT was 31, pro-time was 13.6, and INR 1.29. Procalcitonin was less than 0.05. Lactate was 1.8. IMPRESSION: 1. Altered mental status, etiology uncertain, most likely either transient ischemic attack or hypoglycemic reaction. 2. Uyn-[id number]-[id number] diabetes mellitus type 2. 3. Hypertension. 4. Chronic atrial fibrillation, on Eliquis for anticoagulation. PLAN: I did discuss my findings and recommendations with the patient and her family. The patient and her family wanted her to go home. One of the daughters is going to be staying with her tonight. The patient was discharged home. Observation. Activity as tolerated. Rest. No strenuous activity. Continue present home medications and care. Good hydration and fluid intake. Balanced PATIENT'S NAME: NICHO WALTON [facility] AGE: 76 Y [address] ROOM: [place] [address] LOCATION: [facility] ADMIT DATE: 05/23/2017 ER/Outpatient Report DISCHARGE DATE: 05/23/2017 FAMILY PHYSICIAN: Derik Wall MD ATTENDING PHYSICIAN: Jaqueline Gallagher. Return to see personal physician in 1 to 2 days for followup exam or sooner if needed or return to the emergency room if needed. MD ISRAEL HERRON/modl /[id number] d: 05/23/172319 t: 05/24/17 1820, OUTPATIENT REPORT
[~2017-05-23 17:22] MED LIST changes: -ASPIRIN (CHILDR81 MG PO; -FEOSOL325 MG PO
[2017-05-23 17:54] LABS: BASOPHIL % 0.2 %; EOSINOPHIL % 0.9 %; HEMATOCRIT 35.8 % (33.0-46.0); HEMOGLOBIN 11.7 g/dL (10.0-15.0); IMMATURE GRANULOCYTE % 0.4 %; LYMPHOCYTE # 1.4 K/uL (0.8-4.0); LYMPHOCYTE % 31.5 %; MCHC 32.7 gm/dL (32.0-36.5); MCV 88.8 fl (83.0-98.0); MONOCYTE # 0.4 K/uL (0.0-1.0); MONOCYTE % 9.2 %; MPV 9.7 fl (9.4-12.4); NEUTROPHIL # (ANC) 2.6 K/uL (1.8-7.8); NEUTROPHIL % 57.8 %; NRBC % 0 /100WBC (0-0.00); PLATELET COUNT 139 K/uL (150-450); RBC 4.03 M/uL (3.50-5.50); RDW-CV 13.5 % (11.9-14.6); WBC 4.5 K/uL (4.0-11.0)
[2017-05-23 18:01] LABS: INR - (THERAPEUTIC) 1.29 (0.92-1.07); PROTIME 13.6 SECONDS (9.8-11.4); PTT 31 SECONDS (25-32)
[2017-05-23 18:09] LABS: BILIRUBIN URINE NEGATIVE (NEGATIVE); BLOOD URINE NEGATIVE /UL (NEGATIVE); COLOR URINE YELLOW (YELLOW); GLUCOSE URINE NEGATIVE (NEGATIVE); KETONE URINE NEGATIVE (NEGATIVE); LEUKOCYTES URINE NEGATIVE /UL (NEGATIVE); NITRITE URINE NEGATIVE (NEGATIVE); PROTEIN URINE 30 mg/dL (NEGATIVE); TURBIDITY URINE CLEAR (CLEAR); UROBILINOGEN URINE NORMAL (NORMAL)
[2017-05-23 18:15] LABS: ALBUMIN 3.3 gm/dL (3.5-5.0); CALCIUM 9.7 mg/dL (8.5-10.5); CREATININE 1.1 mg/dL (0.5-1.1); PHOSPHORUS 2.6 mg/dL (2.5-4.9)
[2017-05-23 18:19] LABS: BACTERIA URINE FEW (NEGATIVE); RBC URINE 0-2 #/HPF (NEGATIVE); WBC URINE 0-2 #/HPF (NEGATIVE)
[2017-05-30] MEDS ORDERED: PREVAGEN PO (00:39)
[2017-06-03] MEDS ORDERED: ASPIRIN (CHILDR81 MG PO (13:44)
[2017-06-03] MEDS ORDERED: FEOSOL325 MG PO (13:56)
== END 2017-05-23 19:05 | disposition disaster alternative care site (69) ==
LOC: GMED 17:22
PROVIDERS: Family Medicine
DX: R41.82 Altered mental status, unspecified (principal); E11.22 Type 2 diabetes mellitus with diabetic chronic kidney disease; I13.0 Hypertensive heart and chronic kidney disease with heart failure and stage 1 through stage 4 chronic kidney disease, or unspecified chronic kidney disease; I50.42 Chronic combined systolic (congestive) and diastolic (congestive) heart failure; N18.9 Chronic kidney disease, unspecified; I48.2 Chronic atrial fibrillation; Z79.01 Long term (current) use of anticoagulants; Z88.8 Allergy status to other drugs, medicaments and biological substances; Z79.84 Long term (current) use of oral hypoglycemic drugs; Z79.899 Other long term (current) drug therapy; Z86.718 Personal history of other venous thrombosis and embolism; Z90.49 Acquired absence of other specified parts of digestive tract; Z95.828 Presence of other vascular implants and grafts; Z90.710 Acquired absence of both cervix and uterus; Z98.890 Other specified postprocedural states

== ENCOUNTER → 2017-05-23 | Outpatient (CLI) | payer MEDICARE ==
[~2017-05-23] MED LIST changes: +ALIGN4 MG PO; +ASPIRIN (CHILDR81 MG PO; +CALCIUM600 MG PO; +FEOSOL325 MG PO; +IMODIUM2 MG PO; +LEVAQUIN500 MG PO; +NORCO 5-325 TA1 EACH PO; +OCUVITE LUTEIN1 EAC1 PO; +PREVAGEN PO; +PROBIOTIC1 EAC6 PO; +SYSTANE BALANCE10 ML OPHTH; +SYSTANE GEL10 GM OPHTH; +TYLENOL325 MG PO; +VITAMIN B122500 MCG PO; +VITAMIN C500 M1 PO
== END | disposition disaster alternative care site (69) ==
LOC: GAMB 17:02
DX: R41.82 Altered mental status, unspecified (principal); Z79.891 Long term (current) use of opiate analgesic; R47.01 Aphasia

== ENCOUNTER → 2017-05-29 | Emergency (ER) | payer MEDICARE | END | disposition disaster alternative care site (69) | LOC: GAMB 19:30 | DX: I63.9 Cerebral infarction, unspecified (principal); R47.81 Slurred speech; R47.01 Aphasia; R20.0 Anesthesia of skin; R41.0 Disorientation, unspecified; Z79.2 Long term (current) use of antibiotics; Z98.890 Other specified postprocedural states ==